=== PATIENT | female | born 1990 | race Caucasian/White ===

== ENCOUNTER → 2016-11-03 | Outpatient (CLI) | payer BC ==
[~2016-11-03] VITALS: Ht 165.1 cm; Wt 88.0 kg
[~2016-11-03] MED LIST: PRENATAL TABLE1 EAC3 PO
[2016-11-03 11:40] VITALS: BP 128/62
== END | disposition home or self-care (01) ==
LOC: IVINF 11:29
DX: O36.0990 Maternal care for other rhesus isoimmunization, unspecified trimester, not applicable or unspecified (principal); Z3A.00 Weeks of gestation of pregnancy not specified
CPT/HCPCS: 96372; J2790

== ENCOUNTER 2016-12-12 00:56 | Inpatient (IN) | payer BC ==
[~2016-12-12] VITALS: Ht 165.1 cm; Wt 93.4 kg
[2016-12-12] VITALS (11 sets, daily range): BP systolic 102–126; BP diastolic 55–78
[2016-12-12 02:07] LABS: EOSINOPHIL (%) 0.5 % (0-5); EOSINOPHIL COUNT 0.1 K/uL (0-0.3); HEMATOCRIT 33.6 % (36.0-46.0); IMMATURE GRANULOCYTE (%) 0.5 % (0.0-0.7); IMMATURE GRANULOCYTE COUNT 0.1 K/uL; INSTRUMENT ABS NEUTROPHIL CT 9.9 K/uL; MCH 30.4 PG (29.0-34.0); MCV 92.1 FL (83-99); MEAN PLAT.VOLUME 11.3 uM^3 (9.5-12.4); MONOCYTE COUNT 0.8 K/uL (0-0.8); NEUTROPHIL (%) 77.4 % (45-76); NEUTROPHIL COUNT 9.9 K/uL (1.8-6.4); PLATELET COUNT 212 K/uL (156-360); RBC DIS.WIDTH-CV 13.6 % (11.8-14.6); RBC DIS.WIDTH-SD 45.6 % (39-53); RED BLOOD COUNT 3.65 M/uL (3.80-5.20); WHITE BLOOD COUNT 12.7 K/uL (4.1-10.2)
[2016-12-13 07:34] VITALS: BP 118/74
[2016-12-13 08:17] LABS: BASOPHIL COUNT 0.1 K/uL (0-0.1); EOSINOPHIL (%) 1.4 % (0-5); EOSINOPHIL COUNT 0.2 K/uL (0-0.3); HEMATOCRIT 32.5 % (36.0-46.0); IMMATURE GRANULOCYTE (%) 0.4 % (0.0-0.7); IMMATURE GRANULOCYTE COUNT 0.1 K/uL; INSTRUMENT ABS NEUTROPHIL CT 9.6 K/uL; LYMPHOCYTE COUNT 3.2 K/uL (1.0-2.8); MCH 29.8 PG (29.0-34.0); MCV 93.1 FL (83-99); MEAN PLAT.VOLUME 11.7 uM^3 (9.5-12.4); MONOCYTE (%) 6.7 % (3-12); MONOCYTE COUNT 0.9 K/uL (0-0.8); NEUTROPHIL (%) 68.4 % (45-76); NEUTROPHIL COUNT 9.6 K/uL (1.8-6.4); PLATELET COUNT 170 K/uL (156-360); RBC DIS.WIDTH-CV 14.2 % (11.8-14.6); RBC DIS.WIDTH-SD 47.3 % (39-53); RED BLOOD COUNT 3.49 M/uL (3.80-5.20)
[2016-12-13] MEDS ORDERED: BREAST PUMP MC (17:10)
[2016-12-13 23:30] VITALS: BP 111/63
[2016-12-14 07:50] VITALS: BP 104/63
[2016-12-14] MEDS ORDERED: DOCUSATE SODIU100 MG PO (09:49)
[2016-12-14] MEDS ORDERED: IBUPROFEN800 MG PO (09:49)
[2016-12-14] MEDS ORDERED: CAMILA0.35 MG PO (09:50)
== END 2016-12-14 14:35 | disposition home or self-care (01) | DRG 775 ==
LOC: LDRP-OP → 2WEST 00:57 → LDRP-OP 01-17 13:20
PROVIDERS: Advanced Practice Midwife
PROC: 10E0XZZ Delivery of Products of Conception, External Approach (ICD-10-PCS; principal; 2016-12-12)
PROC: 10907ZC Drainage of Amniotic Fluid, Therapeutic from Products of Conception, Via Natural or Artificial Opening (ICD-10-PCS; 2016-12-12)
DX: O70.0 First degree perineal laceration during delivery (principal); O69.81X0 Labor and delivery complicated by cord around neck, without compression, not applicable or unspecified; Z3A.39 39 weeks gestation of pregnancy; Z37.0 Single live birth
CPT/HCPCS: 83030; 85025; 86870; 86900; 86901; 86905; J2790